=== PATIENT | male | born 1945 | race Caucasian/White ===

== ENCOUNTER 2016-06-22 07:21 | Day surgery (SDC) | payer OTHER, BC ==
[2016-06-22] MEDS ORDERED: fentaNYL 100 MCG/2 ML INJ ONE ×3 (07:29→12:02)
[2016-06-22] MEDS ORDERED: MIDAZOLAM 2 MG/2 ML VIAL ONE ×3 (07:29→12:02)
[2016-06-22] MEDS ORDERED: PROMETHAZINE HCL 25 MG/ML VIAL ONE (12:45)
[2016-06-22] MEDS ORDERED: CEFAZOLIN 1 GM/DEXTROSE/50 ML BAG IV ONE (13:02)
[2016-06-22] MEDS ORDERED: IOPAMIDOL (ISOVUE-300) 100 ML BTL IV ONE (14:42)
[2016-06-22] MEDS ORDERED: OXYCODONE/APAP 5/325 TAB PO PRN (14:49)
[2016-06-22] MEDS ORDERED: ONDANSETRON DISINTEGRATING 4 MG TAB PO PRN (14:49)
[2016-06-22] MEDS ORDERED: ONDANSETRON 4 MG/2 ML VIAL IVP PRN (14:50)
--- NOTE | 2016-06-22 19:29 | IR ---
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 The patient returned for ret rieval of filter on May 10, 2016, but recent episode of rectal bleeding precluded use of anticoag ulation at that time, and the retrieval was postponed. Subsequent endoscopy demonstrated hemorrhoids , which were treated. The patient returns today for elective filter retrieval. Consent: Risks and benefits of the procedure were discussed in detail, and informed consent was obta ined. The patient accepted risks of failure to retrieve filter, internal bleeding, infection, and fr agmentation of filter. Medications: Intravenous conscious sedation and analgesia were given under my supervision. Vital si gns, pulse oximetry, and electrocardiogram were monitored. The patient received 7.5 milligrams of Ve rsed and 375 micrograms of fentanyl intravenously. He received 12.5 mg of Phenergan intravenously. Start time: 0945. End time: 1403. Fluoroscopy time in minutes: 114. Estimated exposure in mGy: 1917. Care was taken during the procedure to vary the skin entry site of x-ray by using AP and both anterior oblique projections. Technique: Right side of the neck was prepped and draped in sterile fashion. All elements of devin l sterile barrier technique were used, including cap, mask, sterile gown, sterile gloves, large steri le sheet, hand hygiene, and 2% chlorhexidine, for cutaneous antisepsis. For ultrasound imaging liliam coy, the transducer and cable were placed in a sterile cover, and sterile coupling gel was used. Ult rasound evaluation of potential access sites was performed, confirming patency of right internal jugu lar vein and, later, left common femoral vein. Ultrasound guidance was used to enter these vessels w ith 5-[place] Microintroducers after 1% Xylocaine local anesthetic. From the neck, a 0.035 [place] w anuradha was followed by a straight multisidehole catheter for frontal inferior vena cavagram. Over the [place] wire, 8- and 10-[place]isian dilators were followed by a 9-Tunisian long sidearm sheath. 25-mm Ampla tz gooseneck snare would not engage the retrieval hook at the apex of the filter. 0.035 exchange Gli dewire was passed through a Rosch celiac catheter to loop back through the apex of the filter. The ti p of the wire was captured with the Amplatz snare and pulled back through the SideArm sheath. 9-Frenc h sheath would not pass over the retrieval hook, however. A long 13-Tunisian sidearm sheath also faile d to pass over the retrieval hook. Additional maneuvers were performed with the Amplatz snare and wi th a triple wire loop snare. Flexible biopsy forceps were passed through a 6-Tunisian sidearm sheath, but the retrieval hook could not be snared. Left common femoral vein was accessed in order to capture the inferior aspect of the filter. An Omni Flush catheter and exchange Glidewire were passed through the inferior apex and captured through a 9 -T[place]isian sidearm sheath using the Amplatz snare. Both ends of the wire were delivered externally. By using simultaneous traction of both ends of the filter and careful advancement of both sheaths, we a ttempted to free up the filter from the wall of the cava, without success. The end of the inferior G lidewire sheared off during this process, and was retrieved from above with the triple loop snare. S heaths were removed and hemostasis obtained by manual compression with thrombix patches. Findings: Inferior vena cava is widely patent. However, tilt of the caval filter has increased comp to December, and the retrieval hook is embedded in the right lateral wall of the cava. Impressions 1. Embedded apical retrieval hook of Optease inferior vena caval filter. 2. Patent inferior vena cava. 3. Failure to percutaneously retrieve the inferior vena caval filter. I reviewed images in detail with the patient, his , and his daughter. - - - - - - - - - - - - - - - - - - - - - - - - - - - - - - - - - - - - - - - - - - - - (PQRS Measures: Current medications were listed in the medical record, including all known prescript ions, [id number] medications, herbal medications, and nutritional supplements. Tobacco Use: N one. Prophylactic antibiotic: Ancef, 1 gram, was given intravenously intraprocedurally and then dis continued. VTE prophylaxis: Unnecessary.)
--- NOTE | 2016-06-22 19:30 | IR ---
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 The patient returned for ret rieval of filter on May 10, 2016, but recent episode of rectal bleeding precluded use of anticoag ulation at that time, and the retrieval was postponed. Subsequent endoscopy demonstrated hemorrhoids , which were treated. The patient returns today for elective filter retrieval. Consent: Risks and benefits of the procedure were discussed in detail, and informed consent was obta ined. The patient accepted risks of failure to retrieve filter, internal bleeding, infection, and fr agmentation of filter. Medications: Intravenous conscious sedation and analgesia were given under my supervision. Vital si gns, pulse oximetry, and electrocardiogram were monitored. The patient received 7.5 milligrams of Ve rsed and 375 micrograms of fentanyl intravenously. He received 12.5 mg of Phenergan intravenously. Start time: 0945. End time: 1403. Fluoroscopy time in minutes: 114. Estimated exposure in mGy: 1917. Care was taken during the procedure to vary the skin entry site of x-ray by using AP and both anterior oblique projections. Technique: Right side of the neck was prepped and draped in sterile fashion. All elements of devin l sterile barrier technique were used, including cap, mask, sterile gown, sterile gloves, large steri le sheet, hand hygiene, and 2% chlorhexidine, for cutaneous antisepsis. For ultrasound imaging liliam coy, the transducer and cable were placed in a sterile cover, and sterile coupling gel was used. Ult rasound evaluation of potential access sites was performed, confirming patency of right internal jugu lar vein and, later, left common femoral vein. Ultrasound guidance was used to enter these vessels w ith 5-Burmese Microintroducers after 1% Xylocaine local anesthetic. From the neck, a 0.035 [place] w anuradha was followed by a straight multisidehole catheter for frontal inferior vena cavagram. Over the [place] wire, 8- and 10-[place]ese dilators were followed by a 9-[place]mese long sidearm sheath. 25-mm Ampla tz gooseneck snare would not engage the retrieval hook at the apex of the filter. 0.035 exchange Gli dewire was passed through a Rosch celiac catheter to loop back through the apex of the filter. The ti p of the wire was captured with the Amplatz snare and pulled back through the SideArm sheath. 9-Frenc h sheath would not pass over the retrieval hook, however. A long 13-Burmese sidearm sheath also faile d to pass over the retrieval hook. Additional maneuvers were performed with the Amplatz snare and wi th a triple wire loop snare. Flexible biopsy forceps were passed through a 6-Burmese sidearm sheath, but the retrieval hook could not be snared. Left common femoral vein was accessed in order to capture the inferior aspect of the filter. An Omni Flush catheter and exchange Glidewire were passed through the inferior apex and captured through a 9 -Burmese sidearm sheath using the Amplatz snare. Both ends of the wire were delivered externally. By using simultaneous traction of both ends of the filter and careful advancement of both sheaths, we a ttempted to free up the filter from the wall of the cava, without success. The end of the inferior G lidewire sheared off during this process, and was retrieved from above with the triple loop snare. S heaths were removed and hemostasis obtained by manual compression with thrombix patches. Findings: Inferior vena cava is widely patent. However, tilt of the caval filter has increased comp to December, and the retrieval hook is embedded in the right lateral wall of the cava. Impressions 1. Embedded apical retrieval hook of Optease inferior vena caval filter. 2. Patent inferior vena cava. 3. Failure to percutaneously retrieve the inferior vena caval filter. I reviewed images in detail with the patient, his , and his daughter. - - - - - - - - - - - - - - - - - - - - - - - - - - - - - - - - - - - - - - - - - - - - (PQRS Measures: Current medications were listed in the medical record, including all known prescript ions, [id number] medications, herbal medications, and nutritional supplements. Tobacco Use: N one. Prophylactic antibiotic: Ancef, 1 gram, was given intravenously intraprocedurally and then dis continued. VTE prophylaxis: Unnecessary.)
== END 2016-06-22 17:40 | disposition home or self-care (01) ==
LOC: FIMAGING 07:21
PROVIDERS: ATTEND Internal Medicine
PROC: 06PY3DZ Removal of Intraluminal Device from Lower Vein, Percutaneous Approach (ICD-10-PCS; principal; 2016-06-22 14:30)
PROC: B549ZZA Ultrasonography of Inferior Vena Cava, Guidance (ICD-10-PCS; principal; 2016-06-22 14:30)
DX: Z45.2 Encounter for adjustment and management of vascular access device (principal); Z86.711 Personal history of pulmonary embolism; Z86.718 Personal history of other venous thrombosis and embolism; E03.9 Hypothyroidism, unspecified
CPT/HCPCS: 37193; 75825; 99152; 99513; C1769; C1773; C1892; J0690; J1644; J2250; J2550; J3010; Q9967

== ENCOUNTER → 2017-03-19 | Outpatient (CLI) | payer OTHER, BC | LOC: CIMAGING 10:23 | PROVIDERS: ATTEND Internal Medicine | DX: R05 Cough (principal); Z86.711 Personal history of pulmonary embolism; Z79.01 Long term (current) use of anticoagulants | CPT/HCPCS: 71020-PO ==